=== PATIENT | male | born 1950 | race Caucasian/White ===

== ENCOUNTER 2019-09-03 11:20 | Emergency (ER) | payer OTHER ==
[2019-09-03] MEDS ORDERED: Lidocaine 2% Jelly 10 ML Urojet MUCMEM ONE (12:10)
--- NOTE | 2019-09-03 12:44 | EDM.PDOC ---
ED HPI GENERAL MEDICAL PROBLEM - General Chief Complaint: Genitourinary Problem Stated Complaint: BLOOD IN URINE Time Seen by Provider: 09/03/19 11:50 Source of Information: Reports: Patient History Limitations: Reports: No Limitations - History of Present Illness INITIAL COMMENTS - FREE TEXT/NARRATIVE: Patient is a 69-year-old male who is of blood in his urine. He states that he is unable to void standing up. When he attempts to void standing up he just passes a couple drops of blood. He is able to void lying on his side however. Patient states he had an episode similar to this about 3 years ago. At that time he was able to pass a blood clot and has not had problems since then. He did not follow-up with a urologist after this instance. Patient is a cement truck driver and states that if he sits for too long without getting up and moving around, he will have recurrence of the symptoms. He has no history of kidney stones and denies any pain associated with the symptoms. Patient is a 1-2 pack- a-day smoker. Treatments MANAGER DELIVERY: Reports: NSAIDS - Related Data Allergies Allergy/AdvReac Type Severity Reaction Status Date / Time alfalfa Allergy Cough Verified 09/03/19 11:34 hair bearing animals Allergy Cough Uncoded 04/03/14 13:24 ragweed Allergy Cough Uncoded 04/03/14 13:24 Home Meds: Home Meds Aspirin 81 mg PO DAILY 09/03/19 [History] Atenolol [Tenormin] 50 mg PO DAILY 09/03/19 [History] Lisinopril [Zestril] 10 mg PO DAILY 09/03/19 [History] Simvastatin 40 mg PO DAILY 09/03/19 [History] Past Medical History Cardiovascular History: Reports: High Cholesterol, Hypertension, RI, Stents Genitourinary History: Reports: Prostate Disorder, Other (See Below) Other Genitourinary History: hx passing blood clots in his urine - Infectious Disease History Infectious Disease History: Reports: Hepatitis A, Hepatitis B Other Infectious Disease History: pt states he doesnt have hep a or b currently , has been tested. pt states he got it in 1970s Social & Family History - Tobacco Use Smoking Status *Q: Current Every Day Smoker Years of Tobacco use: 53 Packs/Tins Daily: 1.5 - Caffeine Use Caffeine Use: Reports: Coffee, Other Other Caffeine Use: vitamin water with caffeine - Recreational Drug Use Recreational Drug Use: Yes Drug Use in Last 12 Months: No ED ROS GENERAL - Review of Systems Review Of Systems: Comprehensive ROS is negative, except as noted in HPI. ED EXAM, RENAL/ - Physical Exam Exam: See Below Exam Limited By: No Limitations General Appearance: Alert, WD/WN, No Apparent Distress Respiratory/Chest: No Respiratory Distress, Lungs Clear, Normal Breath Sounds, No Accessory Muscle Use, Chest Non-Tender Cardiovascular: Normal Peripheral Pulses, Regular Rate, Rhythm, No Edema, No Gallop, No JVD, No Murmur, No Rub GI/Abdominal: Normal Bowel Sounds, Soft, Non-Tender, No Organomegaly, No Distention, No Abnormal Bruit, No Mass Neurological: Alert, Oriented, CN II-XII Intact, Normal Cognition, Normal Gait, Normal Reflexes, No Motor/Sensory Deficits Psychiatric: Normal Affect, Normal Mood Skin Exam: Warm, Dry, Intact, Normal Color, No Rash Course - Vital Signs Last Recorded V/S: Last Vital Signs Temp 98.1 F 09/03/19 11:30 Pulse 57 L 09/03/19 11:30 Resp 16 09/03/19 11:30 BP 157/86 H 09/03/19 11:30 Pulse Ox 95 09/03/19 11:30 - Orders/Labs/Meds Labs: Laboratory Tests 09/03/19 09/03/19 09/03/19 Range/Units 12:33 13:47 13:47 WBC 9.09 H (4.23-9.07) K/mm3 RBC 4.95 (4.63-6.08) M/mm3 Hgb 15.4 (13.7-17.5) gm/dl Hct 45.7 (40.1-51.0) % MCV 92.3 H (79.0-92.2) fl MCH 31.1 (25.7-32.2) pg MCHC 33.7 (32.2-35.5) g/dl RDW Std Deviation 44.7 H (35.1-43.9) fL Plt Count 242 (163-337) K/mm3 MPV 10.1 (9.4-12.3) fl Neut % (Auto) 50.4 (34.0-67.9) % Lymph % (Auto) 36.3 (21.8-53.1) % [place] % (Auto) 7.5 (5.3-12.2) % Eos % (Auto) 5.2 (0.8-7.0) Baso % (Auto) 0.4 (0.1-1.2) % Neut # (Auto) 4.58 (1.78-5.38) K/mm3 Lymph # (Auto) 3.30 (1.32-3.57) K/mm3 [place] # (Auto) 0.68 (0.30-0.82) K/mm3 Eos # (Auto) 0.47 (0.04-0.54) K/mm3 Baso # (Auto) 0.04 (0.01-0.08) K/mm3 Sodium 140 (136-145) mEq/L Potassium 4.2 (3.5-5.1) mEq/L Chloride 106 (98-107) mEq/L Carbon Dioxide 27 (21-32) mEq/L Anion Gap 11.2 (5-15) BUN 12 (7-18) mg/dL Creatinine 1.0 (0.7-1.3) mg/dL Est Cr Clr Drug Dosing 67.02 mL/min Estimated GFR (MDRD) > 60 (>60) mL/min BUN/Creatinine Ratio 12.0 L (14-18) Glucose 92 (80-115) mg/dL Calcium 9.1 (8.5-10.1) mg/dL Total Bilirubin 0.5 (0.2-1.0) mg/dL AST 20 (15-37) U/L ALT 47 (16-63) U/L Alkaline Phosphatase 88 (46-116) U/L Total Protein 7.0 (6.4-8.2) g/dl Albumin 3.6 (3.4-5.0) g/dl Globulin 3.4 gm/dL Albumin/Globulin Ratio 1.1 (1-2) Urine Color Felipa H (Yellow) Urine Appearance Slt cloudy H (Clear) Urine pH 7.0 (5.0-8.0) Ur Specific [place] 1.020 (1.005-1.030) Urine Protein 1+ H (Negative) Urine Glucose (UA) Negative (Negative) Urine Ketones Negative (Negative) Urine Occult Blood 3+ H (Negative) Urine Nitrite Negative (Negative) Urine Bilirubin Negative (Negative) Urine Urobilinogen 0.2 (0.2-1.0) Ur Leukocyte Esterase Negative (Negative) Urine RBC 40-50 H (0-5) /hpf Urine WBC 0-5 (0-5) /hpf Ur Epithelial Cells 0-5 (0-5) /hpf Urine Bacteria Few (FEW) /hpf Urine Mucus Not seen (FEW) /hpf Meds: Medications Discontinued Medications Generic Name Dose Route Start Last Admin Trade Name Freq PRN Reason Stop Dose Admin Lidocaine HCl 10 ml 09/03/19 12:10 09/03/19 12:16 Xylocaine 2% Jelly MUCMEM 09/03/19 12:11 10 ml ONETIME ONE Administration - Re-Assessments/Exams Free Text/Narrative Re-Assessment/Exam: Pizarro catheter was inserted and bladder was irrigated by nursing staff. There were no large clots removed, however urine was deena red in color. Urinalysis was negative for any infection. Patient is in agreements to keep the Pizarro catheter intact until he can see urology. I have also ordered a CBC and CMP, however I will not make the patient wait for the results of these labs. If there is anything abnormal that requires immediate attention, we will contact him, otherwise these will be available for the urologist when he sees them as follow-up. A the patient has been provided with a to call and schedule an appointment with urology. Discharge instructions as documented. Departure - Departure Time of Disposition: 13:34 Disposition: Home, Self-Care 01 Condition: Fair Clinical Impression: Hematuria syndrome, Retention of urine - Discharge Information *PRESCRIPTION DRUG MONITORING PROGRAM REVIEWED*: No *COPY OF PRESCRIPTION DRUG MONITORING REPORT IN PATIENT GEORGI: No Instructions: Indwelling Urinary Catheter Care, Adult, Acute Urinary Retention , Male, [id number], Hematuria, Adult Referrals: Nichole Parada NP [Primary Care Provider] - Jovan Chu MD [Ordering Only Provider] - Alex Hernández MD [Physician] - Forms: ED Department Discharge Additional Instructions: You were seen in the emergency department today for blood in your urine and inability to urinate while standing up. Pizarro catheter was placed and did show deena red blood in your urine, however no large clots were removed. A urinalysis was completed and was negative for any signs of infection. Blood work has been collected. If there is any major abnormalities in this, you will be contacted, otherwise these results will be available for the urologist when you follow-up. Recommend that you call first thing Thursday morning to schedule an appointment with a urologist. The number to contact to make an appointment is [phone]. There are number of providers available at [facility] and [facility] urology clinic in [place]. If you should experience any worsening symptoms, or you find that your catheter is not draining, please return to the emergency department. Sepsis Event Note - Evaluation Sepsis Screening Result: No Definite Risk - Focused Exam Date Exam was Performed: 09/05/19 Time Exam was Performed: 20:19
== END 2019-09-03 14:14 | disposition home or self-care (01) ==
LOC: JD.ED 11:20
DX: R31.9 Hematuria, unspecified (principal); R33.9 Retention of urine, unspecified; E78.00 Pure hypercholesterolemia, unspecified; I10 Essential (primary) hypertension; I25.2 Old myocardial infarction; F17.210 Nicotine dependence, cigarettes, uncomplicated; Z91.048 Other nonmedicinal substance allergy status; Z79.82 Long term (current) use of aspirin; Z79.899 Other long term (current) drug therapy
CPT/HCPCS: 36415; 51702; 51798; 80053; 81001; 85025; 99283

== ENCOUNTER 2024-04-15 09:04 | Inpatient (IN) | payer MEDICARE, OTHER ==
[2024-04-15] MEDS: Albuterol/Ipratropium 3.0-0.5 MG/3 ML Neb Soln NEB ONE (09:47)
[2024-04-15 09:54] LABS: BASOPHILS ABSOLUTE AUTO 0.1 K/mm3 (0.0-0.2); BASOPHILS PERCENT AUTO 0.5 % (0.0-1.0); EOSINOPHILS PERCENT AUTO 0.1 % (0.0-6.0); HEMATOCRIT 45.5 % (42.0-52.0); HEMOGLOBIN 15.7 gm/dl (14.0-18.0); IMMATURE GRAN ABSOLUTE AUTO 0.07 K/mm3 (0.00-0.05); IMMATURE GRAN PERCENT AUTO 0.4 % (0.0-0.4); LYMPHOCYTES ABSOLUTE AUTO 0.8 K/mm3 (1.0-4.8); LYMPHOCYTES PERCENT AUTO 4.4 % (24.0-44.0); MEAN CORPUSCULAR HEMOGLOBIN 32.2 pg (28.0-32.0); MEAN CORPUSCULAR HGB CONC 34.5 g/dl (32.0-36.0); MEAN CORPUSCULAR VOLUME 93.2 fl (83.0-99.0); MEAN PLATELET VOLUME 10.8 fl (9.4-12.4); MONOCYTES ABSOLUTE AUTO 0.3 K/mm3 (0.0-0.8); MONOCYTES PERCENT AUTO 1.5 % (0.0-8.0); NEUTROPHILS ABSOLUTE AUTO 17.2 K/mm3 (1.8-7.7); NEUTROPHILS PERCENT AUTO 93.1 % (41.0-71.0); PLATELET COUNT,PLT 202 K/mm3 (150-400); RED BLOOD CELL COUNT 4.88 M/mm3 (4.52-5.90); WHITE BLOOD CELL COUNT,WBC 18.48 K/mm3 (3.9-11.3)
[2024-04-15] MEDS: methylPREDNISolone Sodium Succinate 125 MG/2 ML SDV IVPUSH ONE (09:58)
[2024-04-15] MEDS: Aspirin 81 MG Tab.Chew PO ONE (10:03)
[2024-04-15] MEDS: Sodium Chloride 0.9% 10 ML Syringe FLUSH PRN (10:04)
[2024-04-15 10:40] LABS: A/G RATIO 0.7 (1-2); ALBUMIN 2.8 g/dl (3.4-5.0); ANION GAP 14.6 (5-15); BILIRUBIN TOTAL 0.8 mg/dL (0.2-1.0); BUN/CREATININE RATIO 23.6 (14-18); CALCIUM 9.4 mg/dL (8.5-10.1); CREATININE 1.4 mg/dL (0.7-1.3); EST CRCL DRUG DOSING (CG) 45.25 mL/min; MAGNESIUM 2.3 mg/dL (1.8-2.4); POTASSIUM,K 3.6 mEq/L (3.5-5.1)
[2024-04-15 10:54] LABS: LACTIC ACID 2.3 mmol/L (0.4-2.0)
[2024-04-15] MEDS: cefTRIAXone 2 GM in Sodium Chloride 0.9% 100 ML IV ONE (11:10)
[2024-04-15] MEDS: Sodium Chloride 0.9% 1,000 ML IV ONE (11:10)
[2024-04-15 11:13] LABS: SLIDE REVIEW ABNORMAL SMEAR
[2024-04-15] MEDS: Azithromycin 500 MG in Sodium Chloride 0.9% 250 ML IV ONE (12:07)
[2024-04-15] MEDS ORDERED: Polyethylene Glycol 3350 Powder 17 GM Packet PO PRN (13:18)
[2024-04-15] MEDS ORDERED: Melatonin 3 MG Tab PO PRN (13:18)
[2024-04-15] MEDS ORDERED: Acetaminophen 325 MG Tab PO PRN (13:18)
[2024-04-15] MEDS: Sodium Chloride 0.9% 1,000 ML IV SCH ×3 (13:31→21:52)
[2024-04-15] MEDS: Albuterol/Ipratropium 3.0-0.5 MG/3 ML Neb Soln NEB SCH (14:16)
[2024-04-15 18:32] LABS: LACTIC ACID 4.4 mmol/L (0.4-2.0)
[2024-04-15] MEDS: VANCOmycin 1.5 GM/300 ML 1.5 GM in Premix Bag 1 BAG IV SCH (20:52)
[2024-04-16 05:52] LABS: BASOPHILS PERCENT AUTO 0.2 % (0.0-1.0); EOSINOPHILS PERCENT AUTO 0.2 % (0.0-6.0); IMMATURE GRAN ABSOLUTE AUTO 0.08 K/mm3 (0.00-0.05); IMMATURE GRAN PERCENT AUTO 0.4 % (0.0-0.4); LYMPHOCYTES ABSOLUTE AUTO 0.8 K/mm3 (1.0-4.8); LYMPHOCYTES PERCENT AUTO 4.1 % (24.0-44.0); MEAN CORPUSCULAR HEMOGLOBIN 31.8 pg (28.0-32.0); MEAN CORPUSCULAR HGB CONC 34.2 g/dl (32.0-36.0); MEAN CORPUSCULAR VOLUME 92.9 fl (83.0-99.0); MEAN PLATELET VOLUME 10.9 fl (9.4-12.4); MONOCYTES ABSOLUTE AUTO 0.7 K/mm3 (0.0-0.8); MONOCYTES PERCENT AUTO 3.5 % (0.0-8.0); NEUTROPHILS ABSOLUTE AUTO 16.9 K/mm3 (1.8-7.7); NEUTROPHILS PERCENT AUTO 91.6 % (41.0-71.0); PLATELET COUNT,PLT 174 K/mm3 (150-400); RED BLOOD CELL COUNT 4.09 M/mm3 (4.52-5.90); WHITE BLOOD CELL COUNT,WBC 18.42 K/mm3 (3.9-11.3)
[2024-04-16 06:14] LABS: A/G RATIO 0.5 (1-2); ALANINE AMINOTRANSFERASE,ALT 41 U/L (16-63); ALKALINE PHOSPHATASE 57 U/L (46-116); ANION GAP 16.4 (5-15); ASPARTATE AMNIOTRANSFERASE,AST 33 U/L (15-37); BILIRUBIN TOTAL 0.4 mg/dL (0.2-1.0); BLOOD UREA NITROGEN,BUN 25 mg/dL (7-18); BUN/CREATININE RATIO 27.8 (14-18); CALCIUM 8.5 mg/dL (8.5-10.1); CARBON DIOXIDE,CO2 20 mEq/L (21-32); CHLORIDE,CL 106 mEq/L (98-107); CREATININE 0.9 mg/dL (0.7-1.3); EST CRCL DRUG DOSING (CG) 70.38 mL/min; ESTIMATED GFR 91 mL/min (>60); GLUCOSE RANDOM 129 mg/dL (70-99); POTASSIUM,K 3.4 mEq/L (3.5-5.1); PROTEIN TOTAL,TP 5.7 g/dl (6.4-8.2); SODIUM,NA 139 mEq/L (136-145)
[2024-04-16 06:15] LABS: SLIDE REVIEW ABNORMAL SMEAR
[2024-04-16 06:30] LABS: C-REACTIVE PROTEIN > 25.00 mg/dL (<0.30)
[2024-04-16] MEDS: Rosuvastatin 10 MG Tab PO SCH (09:03)
[2024-04-16] MEDS: Enoxaparin 40 MG/0.4 ML Syringe SUBCUT SCH (09:03)
[2024-04-16] MEDS: methylPREDNISolone Sodium Succinate 40 MG/1 ML SDV IVPUSH SCH (09:04)
[2024-04-16] MEDS: Aspirin 81 MG Tab.Chew PO SCH (09:05)
[2024-04-16] MEDS: Cefepime 2 GM in Sodium Chloride 0.9% 50 ML IV SCH (09:14)
[2024-04-16] MEDS: Doxycycline 100 MG in Sodium Chloride 0.9% 100 ML IV SCH (11:07)
[2024-04-16] MEDS: Nicotine 21 MG/24 Hr Patch TRDERM SCH (18:13)
[2024-04-16] MEDS: ADVAIR PO SCH (20:58)
[2024-04-16] MEDS ORDERED: Formoterol/Mometasone 200-5 MCG 8.8 GM Inhaler INH SCH (21:00)
[2024-04-17 05:42] LABS: BASOPHILS ABSOLUTE AUTO 0.1 K/mm3 (0.0-0.2); BASOPHILS PERCENT AUTO 0.4 % (0.0-1.0); HEMATOCRIT 35.4 % (42.0-52.0); HEMOGLOBIN 12.3 gm/dl (14.0-18.0); IMMATURE GRAN PERCENT AUTO 1.5 % (0.0-0.4); LYMPHOCYTES ABSOLUTE AUTO 1.1 K/mm3 (1.0-4.8); LYMPHOCYTES PERCENT AUTO 5.6 % (24.0-44.0); MEAN CORPUSCULAR HEMOGLOBIN 31.9 pg (28.0-32.0); MEAN CORPUSCULAR HGB CONC 34.7 g/dl (32.0-36.0); MEAN CORPUSCULAR VOLUME 91.9 fl (83.0-99.0); MEAN PLATELET VOLUME 10.8 fl (9.4-12.4); NEUTROPHILS ABSOLUTE AUTO 17.2 K/mm3 (1.8-7.7); NEUTROPHILS PERCENT AUTO 87.5 % (41.0-71.0); PLATELET COUNT,PLT 184 K/mm3 (150-400); RED BLOOD CELL COUNT 3.85 M/mm3 (4.52-5.90); WHITE BLOOD CELL COUNT,WBC 19.61 K/mm3 (3.9-11.3)
[2024-04-17 06:07] LABS: A/G RATIO 0.6 (1-2); ANION GAP 15.5 (5-15); BILIRUBIN TOTAL 0.3 mg/dL (0.2-1.0); BUN/CREATININE RATIO 31.3 (14-18); C-REACTIVE PROTEIN 12.12 mg/dL (<0.30); CREATININE 0.8 mg/dL (0.7-1.3); EST CRCL DRUG DOSING (CG) 79.18 mL/min; POTASSIUM,K 3.5 mEq/L (3.5-5.1); PROTEIN TOTAL,TP 5.5 g/dl (6.4-8.2)
[2024-04-17] MEDS: Sodium Chloride 0.9% 100 ML IV SCH (17:17)
[2024-04-17] MEDS: Iopamidol 755 Mg/ML 100 ML Bottle IVPUSH ONE (17:17)
[2024-04-17 19:12] LABS: INR 1.03; PROTHROMBIN TIME 10.9 SECONDS (9.7-12.0)
[2024-04-17] MEDS ORDERED: Rosuvastatin 10 MG Tab PO SCH (21:00)
[2024-04-18 05:26] LABS: BASOPHILS ABSOLUTE AUTO 0.1 K/mm3 (0.0-0.2); BASOPHILS PERCENT AUTO 0.6 % (0.0-1.0); EOSINOPHILS PERCENT AUTO 0.1 % (0.0-6.0); HEMATOCRIT 36.2 % (42.0-52.0); HEMOGLOBIN 12.4 gm/dl (14.0-18.0); IMMATURE GRAN ABSOLUTE AUTO 0.89 K/mm3 (0.00-0.05); IMMATURE GRAN PERCENT AUTO 5.5 % (0.0-0.4); LYMPHOCYTES ABSOLUTE AUTO 1.8 K/mm3 (1.0-4.8); LYMPHOCYTES PERCENT AUTO 11.1 % (24.0-44.0); MEAN CORPUSCULAR HEMOGLOBIN 31.6 pg (28.0-32.0); MEAN CORPUSCULAR HGB CONC 34.3 g/dl (32.0-36.0); MEAN CORPUSCULAR VOLUME 92.1 fl (83.0-99.0); MEAN PLATELET VOLUME 10.3 fl (9.4-12.4); MONOCYTES ABSOLUTE AUTO 1.2 K/mm3 (0.0-0.8); MONOCYTES PERCENT AUTO 7.4 % (0.0-8.0); NEUTROPHILS ABSOLUTE AUTO 12.2 K/mm3 (1.8-7.7); NEUTROPHILS PERCENT AUTO 75.3 % (41.0-71.0); PLATELET COUNT,PLT 189 K/mm3 (150-400); RED BLOOD CELL COUNT 3.93 M/mm3 (4.52-5.90); WHITE BLOOD CELL COUNT,WBC 16.25 K/mm3 (3.9-11.3)
[2024-04-18 05:55] LABS: A/G RATIO 0.6 (1-2); ANION GAP 14.7 (5-15); BILIRUBIN TOTAL 0.3 mg/dL (0.2-1.0); BUN/CREATININE RATIO 31.1 (14-18); C-REACTIVE PROTEIN 5.48 mg/dL (<0.30); CALCIUM 8.2 mg/dL (8.5-10.1); CREATININE 0.9 mg/dL (0.7-1.3); EST CRCL DRUG DOSING (CG) 70.38 mL/min; POTASSIUM,K 3.7 mEq/L (3.5-5.1); PROTEIN TOTAL,TP 5.4 g/dl (6.4-8.2)
[2024-04-18] MEDS: Furosemide 20 MG/2 ML VIAL IVPUSH ONE ×2 (07:28→12:04)
[2024-04-18] MEDS ORDERED: Sodium Chloride 3% Inhalation Soln 4 ML Neb NEB PRN (08:23)
[2024-04-18] MEDS: Potassium Chloride 20 MEQ Tab.ER PO ONE (08:42)
[2024-04-18] MEDS: Cefepime 2 GM in Sodium Chloride 0.9% 50 ML IV SCH (10:07)
[2024-04-18] MEDS: Rosuvastatin 10 MG Tab PO SCH (14:24)
[2024-04-18] MEDS: Pantoprazole 40 MG Tab.CR PO SCH (14:25)
[2024-04-18] MEDS: methylPREDNISolone Sodium Succinate 40 MG/1 ML SDV IVPUSH SCH (14:25)
[2024-04-18] MEDS: Lisinopril 20 MG Tab PO SCH (14:26)
[2024-04-18] MEDS: amLODIPine 5 MG Tab PO SCH (20:47)
[2024-04-19 04:47] LABS: BASOPHILS ABSOLUTE AUTO 0.1 K/mm3 (0.0-0.2); BASOPHILS PERCENT AUTO 0.7 % (0.0-1.0); EOSINOPHILS PERCENT AUTO 0.1 % (0.0-6.0); HEMATOCRIT 38.5 % (42.0-52.0); HEMOGLOBIN 13.2 gm/dl (14.0-18.0); IMMATURE GRAN ABSOLUTE AUTO 1.36 K/mm3 (0.00-0.05); IMMATURE GRAN PERCENT AUTO 7.9 % (0.0-0.4); LYMPHOCYTES PERCENT AUTO 11.3 % (24.0-44.0); MEAN CORPUSCULAR HEMOGLOBIN 31.4 pg (28.0-32.0); MEAN CORPUSCULAR HGB CONC 34.3 g/dl (32.0-36.0); MEAN CORPUSCULAR VOLUME 91.7 fl (83.0-99.0); MEAN PLATELET VOLUME 10.7 fl (9.4-12.4); MONOCYTES ABSOLUTE AUTO 0.9 K/mm3 (0.0-0.8); NEUTROPHILS ABSOLUTE AUTO 12.9 K/mm3 (1.8-7.7); PLATELET COUNT,PLT 210 K/mm3 (150-400); WHITE BLOOD CELL COUNT,WBC 17.22 K/mm3 (3.9-11.3)
[2024-04-19 05:26] LABS: A/G RATIO 0.6 (1-2); ALBUMIN 2.2 g/dl (3.4-5.0); ANION GAP 14.9 (5-15); BILIRUBIN TOTAL 0.4 mg/dL (0.2-1.0); BUN/CREATININE RATIO 33.8 (14-18); C-REACTIVE PROTEIN 3.66 mg/dL (<0.30); CALCIUM 8.5 mg/dL (8.5-10.1); CREATININE 0.8 mg/dL (0.7-1.3); EST CRCL DRUG DOSING (CG) 79.18 mL/min; MAGNESIUM 2.3 mg/dL (1.8-2.4); PHOSPHORUS 3.7 mg/dL (2.6-4.7); POTASSIUM,K 3.9 mEq/L (3.5-5.1); PROTEIN TOTAL,TP 5.7 g/dl (6.4-8.2)
[2024-04-19 05:53] LABS: SLIDE REVIEW ABNORMAL SMEAR
[2024-04-19] MEDS: Potassium Chloride 20 MEQ Tab.ER PO ONE (09:55)
[2024-04-19] MEDS: Furosemide 40 MG/4 ML VIAL IVPUSH ONE (09:57)
[2024-04-19] MEDS: cefTRIAXone 2 GM in Sodium Chloride 0.9% 100 ML IV SCH (09:58)
[2024-04-19] MEDS: Azithromycin 500 MG in Sodium Chloride 0.9% 250 ML IV SCH (10:50)
[2024-04-19] MEDS: Atenolol 50 MG Tab PO SCH (11:18)
[2024-04-19] MEDS ORDERED: Albuterol/Ipratropium 3.0-0.5 MG/3 ML Neb Soln NEB PRN (14:00)
[2024-04-20 04:45] LABS: BASOPHILS ABSOLUTE AUTO 0.1 K/mm3 (0.0-0.2); BASOPHILS PERCENT AUTO 0.6 % (0.0-1.0); EOSINOPHILS PERCENT AUTO 0.1 % (0.0-6.0); HEMATOCRIT 38.5 % (42.0-52.0); HEMOGLOBIN 13.2 gm/dl (14.0-18.0); IMMATURE GRAN ABSOLUTE AUTO 1.78 K/mm3 (0.00-0.05); IMMATURE GRAN PERCENT AUTO 7.7 % (0.0-0.4); LYMPHOCYTES ABSOLUTE AUTO 2.8 K/mm3 (1.0-4.8); MEAN CORPUSCULAR HEMOGLOBIN 31.5 pg (28.0-32.0); MEAN CORPUSCULAR HGB CONC 34.3 g/dl (32.0-36.0); MEAN CORPUSCULAR VOLUME 91.9 fl (83.0-99.0); MEAN PLATELET VOLUME 11.1 fl (9.4-12.4); MONOCYTES PERCENT AUTO 4.4 % (0.0-8.0); NEUTROPHILS ABSOLUTE AUTO 17.4 K/mm3 (1.8-7.7); NEUTROPHILS PERCENT AUTO 75.2 % (41.0-71.0); PLATELET COUNT,PLT 238 K/mm3 (150-400); RED BLOOD CELL COUNT 4.19 M/mm3 (4.52-5.90); WHITE BLOOD CELL COUNT,WBC 23.11 K/mm3 (3.9-11.3)
[2024-04-20 05:16] LABS: A/G RATIO 0.7 (1-2); ALBUMIN 2.2 g/dl (3.4-5.0); ANION GAP 14.1 (5-15); BILIRUBIN TOTAL 0.3 mg/dL (0.2-1.0); C-REACTIVE PROTEIN 2.12 mg/dL (<0.30); CALCIUM 8.5 mg/dL (8.5-10.1); EST CRCL DRUG DOSING (CG) 63.35 mL/min; POTASSIUM,K 4.1 mEq/L (3.5-5.1); PROTEIN TOTAL,TP 5.4 g/dl (6.4-8.2)
[2024-04-20 05:30] LABS: SLIDE REVIEW ABNORMAL SMEAR
[2024-04-20] MEDS ORDERED: Rosuvastatin 10 MG Tab PO SCH (21:00)
== END 2024-04-20 14:15 | disposition home or self-care (01) | DRG 871 ==
LOC: JD.ED 09:04 → JD.MS 11:52
PROVIDERS: ADMIT Family Medicine; ATTEND Student in an Organized Health Care Education/Training Program
DX: J18.9 Pneumonia, unspecified organism (principal); I10 Essential (primary) hypertension; A40.3 Sepsis due to Streptococcus pneumoniae; J13 Pneumonia due to Streptococcus pneumoniae; J44.9 Chronic obstructive pulmonary disease, unspecified; J96.01 Acute respiratory failure with hypoxia; R65.20 Severe sepsis without septic shock; E87.20 Acidosis, unspecified; Z91.048 Other nonmedicinal substance allergy status; J44.1 Chronic obstructive pulmonary disease with (acute) exacerbation; J44.0 Chronic obstructive pulmonary disease with (acute) lower respiratory infection; I25.10 Atherosclerotic heart disease of native coronary artery without angina pectoris; I50.9 Heart failure, unspecified; I11.0 Hypertensive heart disease with heart failure; E78.00 Pure hypercholesterolemia, unspecified; I25.2 Old myocardial infarction; R74.01 Elevation of levels of liver transaminase levels; F17.210 Nicotine dependence, cigarettes, uncomplicated; Z95.5 Presence of coronary angioplasty implant and graft; Z88.8 Allergy status to other drugs, medicaments and biological substances; Z79.82 Long term (current) use of aspirin; Z79.899 Other long term (current) drug therapy
CPT/HCPCS: 36415; 71045; 71045-26; 71046; 71046-26; 71275; 71275-26; 80053; 80202; 83605; 83735; 83880; 84100; 84484; 85025; 85379; 85610; 85730; 86140; 87040; 87077; 87154; 87186; 87641; 93005; 93010; 94640; 94760; 94761; 96365; 96375; 97116-GP; 97161-GP; 99223; 99232; 99239; 99285; 99285-25; A9270-GY; J0456; J0692; J0696; J1650; J1940; J2919; J3372; J3490; J7030; J7050; J7620-GY; Q9967